=== PATIENT | male | born 1980 | race Caucasian/White ===

== ENCOUNTER → 2017-11-01 | Emergency (ER) | payer BC ==
[~2017-11-01] VITALS: Ht 177.8 cm; Wt 117.9 kg
[~2017-11-01] MED LIST: DICLOFENAC SODI75 MG PO; LISINOPRIL-HCT1 EACH PO; NORCO 5-325 TA1 EACH PO; TRAMADOL HCL50 MG PO
--- NOTE | 2017-11-02 07:16 | EKG ---
[facility] [address] [facility] [place], [place] [address] Signed Normal sinus rhythm Normal ECG No previous ECGs available Confirmed by LEONELA DUBON MD ([id number] on 11/02/2017 7:15:58 AM Electronically Signed By: LEONELA DUBON MD 11/02/17 0716 PATIENT NAME: ABIGAIL MARQUES Electrocardiogram DATE OF : 82 PHYSICIAN: LEONELA DUBON MD REPORT #: [id number] REPORT IS CONFIDENTIAL AND NOT TO BE RELEASED WITHOUT AUTHORIZATION
== END ==
LOC: ED 19:10
DX: R07.89 Other chest pain (principal); I10 Essential (primary) hypertension; F17.200 Nicotine dependence, unspecified, uncomplicated; Z79.899 Other long term (current) drug therapy
CPT/HCPCS: 71046; 93005; 93010; 99284